=== PATIENT | female | born 1945 ===

== ENCOUNTER 2021-06-03 11:30 | Inpatient (IN) | payer OTHER ==
[~2021-06-03] VITALS: Ht 152.4 cm; Wt 65.3 kg
[2021-06-12] MEDS ORDERED: INTESTINEX680 M1 PO (10:42)
[2021-06-12] MEDS ORDERED: PROTONIX40 MG PO (10:42)
[2021-06-12] MEDS ORDERED: PERCOCET 5-3251 EACH PO (10:43)
== END 2021-06-12 13:31 | disposition home or self-care (01) | DRG 329 ==
LOC: SURH 06-07 07:00 → O/R 06-07 11:23 → SURG 06-07 11:23 → SURH 06-07 11:30 → SURG 06-07 19:26
PROVIDERS: ADMIT Surgery; ATTEND Surgery
PROC: 0DBP0ZZ Excision of Rectum, Open Approach (ICD-10-PCS; 2021-06-07)
PROC: 0DBM0ZZ Excision of Descending Colon, Open Approach (ICD-10-PCS; 2021-06-07)
PROC: 0DQA0ZZ Repair Jejunum, Open Approach (ICD-10-PCS; 2021-06-07)
PROC: 0DNW0ZZ Release Peritoneum, Open Approach (ICD-10-PCS; 2021-06-07)
PROC: 0DN80ZZ Release Small Intestine, Open Approach (ICD-10-PCS; 2021-06-07)
PROC: 0DTN0ZZ Resection of Sigmoid Colon, Open Approach (ICD-10-PCS; principal; 2021-06-07 07:00)
DX: K57.20 Diverticulitis of large intestine with perforation and abscess without bleeding (principal); K65.8 Other peritonitis; K56.50 Intestinal adhesions [bands], unspecified as to partial versus complete obstruction; K91.71 Accidental puncture and laceration of a digestive system organ or structure during a digestive system procedure; Z43.3 Encounter for attention to colostomy; N99.4 Postprocedural pelvic peritoneal adhesions; N73.6 Female pelvic peritoneal adhesions (postinfective); I10 Essential (primary) hypertension; E66.09 Other obesity due to excess calories; Z53.31 Laparoscopic surgical procedure converted to open procedure; Z80.7 Family history of other malignant neoplasms of lymphoid, hematopoietic and related tissues